=== PATIENT | male | born 1940 | race Caucasian/White ===

== ENCOUNTER → 2016-10-21 | Outpatient (CLI) | payer OTHER, MEDICARE | LOC: FIMAGING 14:25 | PROVIDERS: ATTEND Internal Medicine Gastroenterology | DX: K74.69 Other cirrhosis of liver (principal); K76.6 Portal hypertension ==

== ENCOUNTER → 2016-10-29 | Outpatient (CLI) | payer OTHER, MEDICARE ==
[~2016-10-29] MED LIST: IOPAMIDOL (ISOVUE-300) 100 ML BTL IV ONE
== END ==
LOC: FIMAGING 14:10
PROVIDERS: ATTEND Internal Medicine Gastroenterology
DX: K74.60 Unspecified cirrhosis of liver (principal); K76.6 Portal hypertension; R16.1 Splenomegaly, not elsewhere classified; J84.9 Interstitial pulmonary disease, unspecified; Z96.89 Presence of other specified functional implants
CPT/HCPCS: 74160; Q9967

== ENCOUNTER → 2017-06-16 | Outpatient (CLI) | payer OTHER, MEDICARE | LOC: FIMAGING 13:40 | PROVIDERS: ATTEND Internal Medicine Gastroenterology | DX: K74.60 Unspecified cirrhosis of liver (principal); K76.9 Liver disease, unspecified; I70.0 Atherosclerosis of aorta; J84.10 Pulmonary fibrosis, unspecified; Z96.89 Presence of other specified functional implants ==

== ENCOUNTER → 2017-07-16 | Outpatient (CLI) | payer OTHER, MEDICARE ==
[~2017-07-16] MED LIST changes: +GADOBUTROL 10 ML VIAL IVP ONE; -IOPAMIDOL (ISOVUE-300) 100 ML BTL IV ONE
== END ==
LOC: FIMAGING 15:20
PROVIDERS: ATTEND Internal Medicine Gastroenterology
DX: K74.60 Unspecified cirrhosis of liver (principal); K76.9 Liver disease, unspecified; R16.1 Splenomegaly, not elsewhere classified
CPT/HCPCS: 74183; A9585

== ENCOUNTER → 2017-12-30 | Outpatient (CLI) | payer OTHER, MEDICARE, MEDICAID ==
[~2017-12-30] MED LIST changes: -GADOBUTROL 10 ML VIAL IVP ONE; +IOPAMIDOL (ISOVUE-300) 100 ML BTL ONE
== END ==
LOC: FIMAGING 11:17
PROVIDERS: ATTEND Internal Medicine Gastroenterology
DX: K76.9 Liver disease, unspecified (principal); K74.60 Unspecified cirrhosis of liver; R16.1 Splenomegaly, not elsewhere classified; I81 Portal vein thrombosis
CPT/HCPCS: 74160; Q9967

== ENCOUNTER 2018-02-07 07:22 | Observation (INO) | payer OTHER, MEDICARE, MEDICAID ==
[2018-02-07] MEDS ORDERED: fentaNYL 100 MCG/2 ML INJ IVP PRN (08:17)
[2018-02-07] MEDS ORDERED: HEPARIN 10,000 UNIT/10 ML MDV (1,000 UNIT/ML) IVP PRN (08:17)
[2018-02-07] MEDS ORDERED: FLUMAZENIL 0.5 MG/5 ML MDV IVP PRN (08:17)
[2018-02-07] MEDS ORDERED: NALOXONE HCL 0.4 MG/ML INJ IVP PRN (08:17)
[2018-02-07] MEDS ORDERED: PROTAMINE SULFATE 50 MG/5 ML VIAL IVP PRN (08:17)
[2018-02-07] MEDS ORDERED: MEPERIDINE 25 MG/ML SYR IVP PRN (08:17)
[2018-02-07] MEDS ORDERED: MIDAZOLAM 2 MG/2 ML VIAL IVP PRN (08:17)
[2018-02-07] MEDS ORDERED: IOPAMIDOL (ISOVUE-300) 100 ML BTL ONE ×3 (08:28→12:57)
[2018-02-07] MEDS ORDERED: NS 1,000 ML IV SCH ×2 (08:30→12:15)
[2018-02-07 08:59] LABS: PLATELET COUNT 81 10^3/uL (150-400)
[2018-02-07] MEDS ORDERED: ERTAPENEM 1 GM in NS 100 ML IV ONE (09:00)
[2018-02-07] MEDS ORDERED: DOXORUBICIN MISC ONE ×2 (09:00)
[2018-02-07] MEDS ORDERED: [UNRECOGNIZED DRUG - OTHER] MISC ONE ×2 (09:00)
--- NOTE | 2018-02-07 09:10 | PDGENHP ---
History & Physical Chief Complaint: HCC History of Present Illness: EXENSIVE HISTORY OF HCC. POST TREATMEN. HIGH RISK PATIENT. PLEASE SEE PREVIOUS CONSULTS. Pertinent Past, Social, Family History: NONE SMOKER. SUPORTIVE FAMILY. ATRIAL FLUTTER. Relevant Physical Exam: ALERT. ORIENTED. NO PAIN. NO DISTRESS. Cardiorespiratory Assessment: RRR. NO ARRYTHMIA TODAY.
--- NOTE | 2018-02-07 09:11 | PDPROPOC ---
Sedation Plan of Care Sedation Plan of Care: vital signs stable, mental status noted, patient educated of risks, benefits, alternatives, patient can tolerate sedation ASA Classification: ASA 3 Planned drugs: fentanyl, midazolam Mallampati Score: Class 1 Mallampati Reference Image: Patient passed 3-3-2 rule?: Yes
[2018-02-07] MEDS ORDERED: ONDANSETRON 4 MG/2 ML VIAL ONE (09:13)
[2018-02-07] MEDS ORDERED: ONDANSETRON 4 MG/2 ML VIAL IVP ONE (09:25)
[2018-02-07 09:27] LABS: INR 1.06 (0.83-1.16)
[2018-02-07] MEDS ORDERED: NITROGLYCERIN/D5W 50 MG/250 ML BOTTLE IV ONE (11:48)
[2018-02-07] MEDS ORDERED: oxyCODONE IR 5 MG TAB PO PRN (12:02)
[2018-02-07] MEDS ORDERED: ONDANSETRON 4 MG/2 ML VIAL IVP PRN (12:02)
[2018-02-07] MEDS ORDERED: ACETAMINOPHEN 325 MG TAB PO PRN (12:05)
--- NOTE | 2018-02-07 12:12 | PDRADPN ---
Radiology Procedure Note Date of Procedure: 02/07/18 Radiologist: Romelia Al Anesthesia: IV Sedation Pre-op Diagnosis: hcc Post-op Diagnosis: same Indication: treatment needed Procedure: chemoembolization Finding(s): see report Inf/Abcess present in the surg proc area at time of surgery?: No Complications: none immediately
[2018-02-08 04:54] LABS: PLATELET COUNT 70 10^3/uL (150-400)
[2018-02-08 09:02] VITALS: BP 112/70
--- NOTE | 2018-02-08 10:25 | SOAPPROG ---
SOAP Progress Note Assessment/Plan: Assessment: LFTs slightly increased but expected post TACE. Stable otherwise. Plan: 1. DC today 2. Follow up with Dr. Jaffe for lab checks and MRI, discussed with Dr. Jaffe. 02/08/18 10:21 Subjective: No complaints. Objective: Vital Signs Temp Pulse Resp BP Pulse Ox 36.4 C 80 16 112/70 89 L 02/08/18 08:58 02/08/18 08:58 02/08/18 08:58 02/08/18 08:58 02/08/18 08:58 Laboratory Results 02/08/18 04:26 02/08/18 04:26 02/07/18 02/08/18 02/09/18 05:59 05:59 05:59 Intake Total 1550 Output Total 990 125 Balance 560 -125 PT 14.0 SEC (12.0-15.0) 02/07/18 08:45 INR 1.06 (0.83-1.16) 02/07/18 08:45 Baseline mentation. RT groin without hematoma. Pulses normal. - Pending Discharge Pending Discharge Within 24 Hours: Yes Pending Discharge Date: 02/09/18 Pending Discharge Time: 11:00 ICD10 Worksheet Patient Problems: Problems Problem Status Onset Acute hepatic encephalopathy Acute Atrial flutter with rapid ventricular response Acute Gastrointestinal hemorrhage Acute
[2018-02-08] MEDS ORDERED: SPIRONOLACTONE 25 MG TAB PO SCH (10:30)
[2018-02-08] MEDS ORDERED: FUROSEMIDE 20 MG TAB PO SCH (10:30)
[2018-02-08] MEDS ORDERED: LACTULOSE 20 GM/30 ML UDCUP PO SCH (10:30)
[2018-02-08] MEDS ORDERED: FLUoxetine 10 MG CAP PO SCH (10:30)
[2018-02-08] MEDS ORDERED: FERROUS SULFATE 325 MG TAB PO SCH (10:30)
[2018-02-08] MEDS ORDERED: PANTOPRAZOLE SODIUM 40 MG TAB PO SCH (10:30)
[2018-02-08] MEDS ORDERED: RIFAXIMIN 550 MG TAB PO SCH (21:00)
[2018-02-09] MEDS ORDERED: GINKGO BILOBA 60 MG PO SCH (09:00)
[2018-02-09] MEDS ORDERED: VITAMIN B COMPLEX 1 EA CAP/TAB PO SCH (09:00)
== END 2018-02-08 12:00 | disposition home or self-care (01) ==
LOC: F1NOP 07:22 → EDSTATUS 07:30 → F1NOP 13:00 → F1N 13:08
PROVIDERS: ADMIT Radiology Diagnostic Radiology; ATTEND Radiology Diagnostic Radiology
PROC: 0FL Hepatobiliary System and Pancreas, Occlusion (ICD-10-PCS; principal; 2018-02-07)
PROC: 04HK3DZ Insertion of Intraluminal Device into Right Femoral Artery, Percutaneous Approach (ICD-10-PCS; principal; 2018-02-07)
PROC: 04H Lower Arteries, Insertion (ICD-10-PCS; principal; 2018-02-07)
DX: C22.0 Liver cell carcinoma (principal)
CPT/HCPCS: 36247; 36248; 37243; 75726; 99152; 99153; C1758; C1769; C1894; J1335; J1644; J2250; J2405; J3010; J9000; Q9967; J2310

== ENCOUNTER → 2018-05-13 | Outpatient (CLI) | payer OTHER, MEDICARE, MEDICAID ==
[~2018-05-13] MED LIST changes: +GADOBUTROL 10 ML VIAL IVP ONE; -IOPAMIDOL (ISOVUE-300) 100 ML BTL ONE
== END ==
LOC: FIMAGING 14:25
PROVIDERS: ATTEND Internal Medicine Gastroenterology
DX: Z08 Encounter for follow-up examination after completed treatment for malignant neoplasm (principal); C22.0 Liver cell carcinoma
CPT/HCPCS: 74183; A9585; 82565-PO